=== PATIENT | male | born 1940 | race Caucasian/White ===

== ENCOUNTER 2016-05-21 00:34 | Emergency (ER) | payer OTHER ==
[~2016-05-21] VITALS: Ht 172.7 cm; Wt 72.8 kg
[~2016-05-21 00:34] MED LIST: CIPRO500 MG PO; CITRATE OF MAG296 ML PO; CLOPIDOGREL75 MG PO; CONSTULOSE10 GM/15 M PO; FOLIC ACID1 MG PO; IMDUR60 MG PO; LOPRESSOR25 MG PO; PERCOCET 5/31 TABLET PO; PRAVASTATIN SOD40 MG PO; RAMIPRIL5 MG PO
[2016-05-21 01:23] LABS: ADD MIUA? YES; BILIRUBIN NEGATIVE; BLOOD SMALL; COLOR YELLOW ((YELLOW)); GLUCOSE (STRIP) NEGATIVE; KETONES NEGATIVE; LEUKOCYTES LARGE; NITRITE NEGATIVE; PROTEIN (STRIP) NEGATIVE; SPECIFIC GRAVITY 1.015 (1.000-1.030); UROBILINOGEN 0.2 MG/DL (0.2-1.0)
[2016-05-21 01:48] LABS: HEMATOCRIT 43.6 % (38.0-50.0); MCH 30.1 PG (29.0-34.0); MCHC 33.7 G/DL (30.0-36.0); MEAN PLAT.VOLUME 9.3 uM^3 (9.0-12.4); PLATELET COUNT 202 K/uL (156-360); RBC DIS.WIDTH-CV 13.7 % (11.8-14.6); RED BLOOD COUNT 4.89 M/uL (4.00-5.50); WHITE BLOOD COUNT 5.9 K/uL (4.1-10.2)
[2016-05-21 01:49] LABS: BACTERIA 1+; CASTS NONE SEEN /LPF; CRYSTALS NONE SEEN; EPITHELIAL CELLS RARE; MUCUS NONE SEEN; RED BLOOD CELLS 0-5 /HPF (0-5); UCUL ADDED? YES; WHITE BLOOD CELLS TNTC /HPF (0-5)
[2016-05-21 01:50] LABS: MCV 89.2 FL (86-99)
[2016-05-21 02:00] LABS: CHLORIDE 104 mEq/L (99-109); POTASSIUM 4.2 mEq/L (3.7-5.4); SODIUM 138 mEq/L (136-147)
[2016-05-21 02:01] LABS: GLUCOSE 99 mg/dL (70-99)
[2016-05-21 02:03] LABS: ANION GAP 6 MEQ/L (2-14)
[2016-05-21 02:05] LABS: GFR ESTIMATE (CALCULATED) > 59 mL/min/
[2016-05-21 02:06] LABS: UREA NITROGEN (BUN) 10 mg/dL (9-23)
[2016-05-21] MEDS ORDERED: CIPRO500 MG PO (03:59)
[2016-05-21 04:30] VITALS: BP 157/79
== END 2016-05-21 04:34 | disposition home or self-care (01) ==
LOC: EME 00:34
PROVIDERS: Emergency Medicine
DX: N30.00 Acute cystitis without hematuria (principal); E78.5 Hyperlipidemia, unspecified; I10 Essential (primary) hypertension; Z95.1 Presence of aortocoronary bypass graft; Z87.891 Personal history of nicotine dependence
CPT/HCPCS: 74176; 80048; 81003; 85027; 87086; 99281; 99284

== ENCOUNTER 2016-06-04 09:33 | Emergency (ER) | payer OTHER ==
[~2016-06-04] VITALS: Ht 172.7 cm; Wt 68.0 kg
[2016-06-04] MEDS ORDERED: LO-DOSE ASPIRIN81 M2 PO (10:04)
[2016-06-04] MEDS ORDERED: MULTIPLE VITAM1 EACH PO (10:05)
[2016-06-04] MEDS ORDERED: NIASPAN,SLO-NI500 MG PO (10:06)
[2016-06-04] MEDS ORDERED: TRICOR145 MG PO (10:07)
[2016-06-04] MEDS ORDERED: VITAMIN C1000 MG PO (10:08)
[2016-06-04] MEDS ORDERED: VITAMIN D2000 UNI1 PO (10:08)
[2016-06-04 10:19] LABS: CHLORIDE 105 mEq/L (99-109); POTASSIUM 3.7 mEq/L (3.7-5.4); SODIUM 138 mEq/L (136-147)
[2016-06-04 10:21] LABS: GLUCOSE 112 mg/dL (70-99)
[2016-06-04 10:22] LABS: ANION GAP 7 MEQ/L (2-14)
[2016-06-04 10:24] LABS: EOSINOPHIL (%) 1.2 % (0-5); EOSINOPHIL COUNT 0.1 K/uL (0-0.3); HEMATOCRIT 41.4 % (38.0-50.0); IMMATURE GRANULOCYTE (%) 0.8 % (0.0-0.7); IMMATURE GRANULOCYTE COUNT 0.4 K/uL; MCH 29.9 PG (29.0-34.0); MCHC 34.1 G/DL (30.0-36.0); MCV 87.7 FL (86-99); MEAN PLAT.VOLUME 8.8 uM^3 (9.0-12.4); MONOCYTE (%) 6.2 % (3-12); MONOCYTE COUNT 0.3 K/uL (0-0.8); NEUTROPHIL (%) 71.3 % (45-76); NEUTROPHIL COUNT 3.5 K/uL (1.8-6.4); PLATELET COUNT 189 K/uL (156-360); RBC DIS.WIDTH-SD 44.3 % (39-53); RED BLOOD COUNT 4.72 M/uL (4.00-5.50)
[2016-06-04 10:25] LABS: ALKALINE PHOSPHATASE 111 IU/L (3-129); GFR ESTIMATE (CALCULATED) > 59 mL/min/
[2016-06-04 10:26] LABS: UREA NITROGEN (BUN) 10 mg/dL (9-23)
[2016-06-04 15:06] VITALS: BP 126/79
== END 2016-06-04 15:32 | disposition home or self-care (01) ==
LOC: EME 09:33
PROVIDERS: Emergency Medicine
DX: K52.9 Noninfective gastroenteritis and colitis, unspecified (principal); I10 Essential (primary) hypertension; E78.5 Hyperlipidemia, unspecified; Z87.891 Personal history of nicotine dependence
CPT/HCPCS: 74022; 74177; 80053; 85025; 93005; 99281; 99285

== ENCOUNTER 2016-06-08 10:11 | Emergency (ER) | payer OTHER ==
[~2016-06-08] VITALS: Ht 172.7 cm; Wt 70.3 kg
[~2016-06-08 10:11] MED LIST changes: +LO-DOSE ASPIRIN81 M2 PO; +MULTIPLE VITAM1 EACH PO; +NIASPAN,SLO-NI500 MG PO; +TRICOR145 MG PO; +VITAMIN C1000 MG PO; +VITAMIN D2000 UNI1 PO
[2016-06-08 11:44] LABS: HEMATOCRIT 42.6 % (38.0-50.0); MCH 30.2 PG (29.0-34.0); PLATELET COUNT 189 K/uL (156-360); RBC DIS.WIDTH-CV 13.8 % (11.8-14.6); RBC DIS.WIDTH-SD 42.5 % (39-53); RED BLOOD COUNT 4.94 M/uL (4.00-5.50); WHITE BLOOD COUNT 6.1 K/uL (4.1-10.2)
[2016-06-08 11:46] LABS: MCV 86.2 FL (86-99)
[2016-06-08 11:53] LABS: CHLORIDE 104 mEq/L (99-109); POTASSIUM 4.8 mEq/L (3.7-5.4); SODIUM 133 mEq/L (136-147)
[2016-06-08 11:57] LABS: ANION GAP 9 MEQ/L (2-14); GLUCOSE 139 mg/dL (70-99)
[2016-06-08 11:59] LABS: ALKALINE PHOSPHATASE 98 IU/L (3-129); GFR ESTIMATE (CALCULATED) > 59 mL/min/
[2016-06-08 12:00] LABS: UREA NITROGEN (BUN) 7 mg/dL (9-23)
[2016-06-08 12:03] LABS: TOTAL BILIRUBIN 0.5 mg/dL (0.0-1.0)
[2016-06-08 12:37] LABS: ADD MIUA? YES; BILIRUBIN NEGATIVE; BLOOD SMALL; COLOR YELLOW ((YELLOW)); GLUCOSE (STRIP) 100; KETONES NEGATIVE; LEUKOCYTES SMALL; NITRITE NEGATIVE; PROTEIN (STRIP) NEGATIVE; SPECIFIC GRAVITY 1.016 (1.000-1.030); UROBILINOGEN 0.2 MG/DL (0.2-1.0)
[2016-06-08 13:16] LABS: WHITE BLOOD CELLS RARE /HPF (0-5)
[2016-06-08 13:17] LABS: BACTERIA RARE /HPF; CASTS NONE SEEN /LPF; CRYSTALS NONE SEEN; EPITHELIAL CELLS NONE SEEN /HPF; MUCUS NONE SEEN /LPF; UCUL ADDED? NO
[2016-06-08] MEDS ORDERED: DULCOLAX5 MG PO (15:44)
[2016-06-08 15:53] VITALS: BP 145/88
[2016-06-09] MEDS ORDERED: KEFLEX500 MG PO (04:54)
== END 2016-06-08 16:51 | disposition home or self-care (01) ==
LOC: EME 10:11
DX: K59.00 Constipation, unspecified (principal); R33.9 Retention of urine, unspecified; N40.0 Benign prostatic hyperplasia without lower urinary tract symptoms; I10 Essential (primary) hypertension; E78.5 Hyperlipidemia, unspecified; Z95.1 Presence of aortocoronary bypass graft; Z79.82 Long term (current) use of aspirin; Z87.891 Personal history of nicotine dependence
CPT/HCPCS: 74176; 80053; 81003; 83605; 85027

== ENCOUNTER 2016-06-09 03:37 | Emergency (ER) | payer OTHER ==
[~2016-06-09] VITALS: Ht 172.7 cm; Wt 68.6 kg
[~2016-06-09 03:37] MED LIST changes: +DULCOLAX5 MG PO
[2016-06-09 04:12] LABS: HEMATOCRIT 43.2 % (38.0-50.0); MCH 29.5 PG (29.0-34.0); MCHC 34.3 G/DL (30.0-36.0); MCV 86.2 FL (86-99); PLATELET COUNT 205 K/uL (156-360); RBC DIS.WIDTH-CV 13.7 % (11.8-14.6); RBC DIS.WIDTH-SD 42.2 % (39-53); RED BLOOD COUNT 5.01 M/uL (4.00-5.50)
[2016-06-09 04:22] LABS: CHLORIDE 103 mEq/L (99-109); POTASSIUM 3.9 mEq/L (3.7-5.4); SODIUM 136 mEq/L (136-147)
[2016-06-09 04:23] LABS: ADD MIUA? YES; BILIRUBIN NEGATIVE; BLOOD LARGE; COLOR YELLOW ((YELLOW)); GLUCOSE (STRIP) NEGATIVE; KETONES NEGATIVE; LEUKOCYTES LARGE; NITRITE NEGATIVE; PROTEIN (STRIP) 30; SPECIFIC GRAVITY 1.012 (1.000-1.030); UROBILINOGEN 0.2 MG/DL (0.2-1.0)
[2016-06-09 04:23] LABS: GLUCOSE 107 mg/dL (70-99)
[2016-06-09 04:25] LABS: ANION GAP 7 MEQ/L (2-14)
[2016-06-09 04:27] LABS: GFR ESTIMATE (CALCULATED) > 59 mL/min/
[2016-06-09 04:28] LABS: UREA NITROGEN (BUN) 7 mg/dL (9-23)
[2016-06-09 04:49] LABS: WHITE BLOOD CELLS TNTC /HPF (0-5)
[2016-06-09 04:50] LABS: BACTERIA 2+ /HPF; CASTS NONE SEEN /LPF; CRYSTALS PRESENT; EPITHELIAL CELLS RARE /HPF; MUCUS RARE /LPF; OTHER SPERM CELLS; UCUL ADDED? YES
[2016-06-09 04:51] LABS: AMORPHOUS URATES CRYSTALS 3+; CALCIUM OXALATE CRYSTALS 1+ /HPF
[2016-06-09] MEDS ORDERED: KEFLEX500 MG PO (04:54)
[2016-06-09 05:09] VITALS: BP 119/88
[2016-06-10] MEDS ORDERED: ULTRAM50 MG PO (18:41)
== END 2016-06-09 05:12 | disposition home or self-care (01) ==
LOC: EME 03:37
PROVIDERS: Emergency Medicine
DX: R33.9 Retention of urine, unspecified (principal); N39.0 Urinary tract infection, site not specified; E78.5 Hyperlipidemia, unspecified; I10 Essential (primary) hypertension; Z95.1 Presence of aortocoronary bypass graft; Z87.891 Personal history of nicotine dependence
CPT/HCPCS: 80048; 81003; 85027; 87086; 99281; 99284

== ENCOUNTER 2016-06-10 16:15 | Emergency (ER) | payer OTHER ==
[~2016-06-10] VITALS: Ht 172.7 cm; Wt 69.1 kg
[~2016-06-10 16:15] MED LIST changes: +KEFLEX500 MG PO
[2016-06-10 17:33] LABS: HEMATOCRIT 41.1 % (38.0-50.0); MCHC 35.3 G/DL (30.0-36.0); MCV 85.1 FL (86-99); MEAN PLAT.VOLUME 8.9 uM^3 (9.0-12.4); PLATELET COUNT 206 K/uL (156-360); RBC DIS.WIDTH-CV 13.6 % (11.8-14.6); RBC DIS.WIDTH-SD 41.6 % (39-53); RED BLOOD COUNT 4.83 M/uL (4.00-5.50); WHITE BLOOD COUNT 6.2 K/uL (4.1-10.2)
[2016-06-10 17:36] LABS: ADD MIUA? YES; BILIRUBIN NEGATIVE; BLOOD SMALL; COLOR YELLOW ((YELLOW)); GLUCOSE (STRIP) NEGATIVE; KETONES NEGATIVE; LEUKOCYTES LARGE; NITRITE NEGATIVE; PROTEIN (STRIP) NEGATIVE; SPECIFIC GRAVITY 1.015 (1.000-1.030); UROBILINOGEN 0.2 MG/DL (0.2-1.0)
[2016-06-10 17:42] LABS: CHLORIDE 103 mEq/L (99-109); POTASSIUM 3.6 mEq/L (3.7-5.4); SODIUM 135 mEq/L (136-147)
[2016-06-10 17:44] LABS: GLUCOSE 101 mg/dL (70-99)
[2016-06-10 17:45] LABS: ANION GAP 5 MEQ/L (2-14)
[2016-06-10 17:46] LABS: TOTAL BILIRUBIN 0.6 mg/dL (0.0-1.0)
[2016-06-10 17:47] LABS: ALKALINE PHOSPHATASE 86 IU/L (3-129)
[2016-06-10 17:48] LABS: GFR ESTIMATE (CALCULATED) > 59 mL/min/
[2016-06-10 17:49] LABS: UREA NITROGEN (BUN) 9 mg/dL (9-23)
[2016-06-10 17:51] LABS: CREATINE KINASE 32 IU/L (1-294); LIPASE 11 U/L (1.0-51.0)
[2016-06-10 18:17] LABS: RED BLOOD CELLS RARE /HPF (0-5); WHITE BLOOD CELLS 0-5 /HPF (0-5)
[2016-06-10 18:18] LABS: BACTERIA NONE SEEN /HPF; CALCIUM OXALATE CRYSTALS 2+ /HPF; CASTS NONE SEEN /LPF; CRYSTALS PRESENT; EPITHELIAL CELLS RARE /HPF; MUCUS NONE SEEN /LPF; UCUL ADDED? NO
[2016-06-10] MEDS ORDERED: ULTRAM50 MG PO (18:41)
[2016-06-10 18:59] VITALS: BP 123/72
== END 2016-06-10 19:10 | disposition home or self-care (01) ==
LOC: EME 16:15
PROVIDERS: Emergency Medicine
DX: K52.9 Noninfective gastroenteritis and colitis, unspecified (principal); I10 Essential (primary) hypertension; E78.5 Hyperlipidemia, unspecified; Z79.82 Long term (current) use of aspirin; Z95.1 Presence of aortocoronary bypass graft; Z87.891 Personal history of nicotine dependence
CPT/HCPCS: 80053; 81003; 82550; 83690; 85027; 99281; 99284

== ENCOUNTER 2016-06-12 07:35 | Inpatient (IN) | payer OTHER ==
[2016-06-12] VITALS (15 sets, daily range): BP systolic 101–151; BP diastolic 62–102
[~2016-06-12] VITALS: Ht 172.7 cm; Wt 62.8 kg
[~2016-06-12 07:35] MED LIST changes: +ULTRAM50 MG PO
[2016-06-12 08:13] LABS: AMYLASE 26 IU/L (1-118); CHLORIDE 102 mEq/L (99-109); POTASSIUM 3.9 mEq/L (3.7-5.4); SODIUM 138 mEq/L (136-147)
[2016-06-12 08:17] LABS: ANION GAP 7 MEQ/L (2-14)
[2016-06-12 08:18] LABS: SERUM ETHYL ALCOHOL < 10 mg/dL
[2016-06-12 08:19] LABS: GFR ESTIMATE (CALCULATED) > 59 mL/min/
[2016-06-12 08:20] LABS: UREA NITROGEN (BUN) 10 mg/dL (9-23)
[2016-06-12 08:22] LABS: GLUCOSE 169 mg/dL (70-99); LIPASE 23 U/L (1.0-51.0)
[2016-06-12 08:36] LABS: EOSINOPHIL (%) 0.2 % (0-5); HEMATOCRIT 44.7 % (38.0-50.0); IMMATURE GRANULOCYTE (%) 0.4 % (0.0-0.7); IMMATURE GRANULOCYTE COUNT 0.1 K/uL; LYMPHOCYTE COUNT 0.8 K/uL (1.0-2.8); MCH 30.5 PG (29.0-34.0); MCHC 34.5 G/DL (30.0-36.0); MCV 88.5 FL (86-99); MEAN PLAT.VOLUME 9.6 uM^3 (9.0-12.4); MONOCYTE (%) 5.1 % (3-12); MONOCYTE COUNT 0.6 K/uL (0-0.8); NEUTROPHIL (%) 87.3 % (45-76); NEUTROPHIL COUNT 9.9 K/uL (1.8-6.4); PLATELET COUNT 188 K/uL (156-360); RBC DIS.WIDTH-CV 14.1 % (11.8-14.6); RBC DIS.WIDTH-SD 45.1 % (39-53); RED BLOOD COUNT 5.05 M/uL (4.00-5.50); WHITE BLOOD COUNT 11.4 K/uL (4.1-10.2)
[2016-06-12 09:53] LABS: INTER. NORMALIZED RATIO 1.1; PROTHROMBIN TIME 11.1 (9.2-11.2); PTT 26.9 (25-32)
[2016-06-12] MEDS ORDERED: LIPITOR20 MG PO (10:16)
[2016-06-12] MEDS ORDERED: OMEPRAZOLE20 MG PO (10:16)
[2016-06-12] MEDS ORDERED: SERTRALINE HCL50 MG PO (10:17)
[2016-06-12] MEDS ORDERED: LINZESS145 MCG PO (10:17)
[2016-06-12] MEDS ORDERED: LANSOPRAZOLE30 MG PO (10:18)
[2016-06-12] MEDS ORDERED: ENULOSE10 GM/15 M PO (10:18)
[2016-06-12] MEDS ORDERED: KEFLEX500 MG PO (10:19)
[2016-06-12 13:40] LABS: Estimated Average Glucose 114 mg/dL (70-123); HEMOGLOBIN A1c (GLYCOHEMOGLOB) 5.6 % HGB (Below 5.7)
[2016-06-12 13:41] LABS: METH RESISTANT S AUREUS PCR NEGATIVE (NEGATIVE)
[2016-06-12 13:42] LABS: SPECIMEN PROCESSING CONTROL PASS
[2016-06-12 13:43] LABS: PROBE CHECK PASS
[2016-06-13] VITALS (15 sets, daily range): BP systolic 98–142; BP diastolic 58–80
[2016-06-13 06:21] LABS: ALKALINE PHOSPHATASE 55 IU/L (3-129); ANION GAP 2 MEQ/L (2-14); CHLORIDE 103 MEQ/L (99-109); GFR ESTIMATE (CALCULATED) > 59 mL/min/; GLUCOSE 177 mg/dL (70-99); POTASSIUM 4.3 MEQ/L (3.7-5.4); SAMPLE HEMOLYSIS CHECK 0; SAMPLE ICTERIC CHECK 0; SAMPLE LIPEMIA CHECK 0; SODIUM 138 MEQ/L (136-147); TOTAL BILIRUBIN 0.7 MG/DL (0.0-1.0); UREA NITROGEN (BUN) 13 mg/dL (9-23)
[2016-06-13 06:34] LABS: HEMATOCRIT 38.6 % (38.0-50.0); MCH 29.9 PG (29.0-34.0); MCHC 33.2 G/DL (30.0-36.0); MCV 90.2 FL (86-99); MEAN PLAT.VOLUME 9.5 uM^3 (9.0-12.4); PLATELET COUNT 172 K/uL (156-360); RBC DIS.WIDTH-CV 14.5 % (11.8-14.6); RBC DIS.WIDTH-SD 47.4 % (39-53); RED BLOOD COUNT 4.28 M/uL (4.00-5.50)
[2016-06-13 06:36] LABS: WHITE BLOOD COUNT 6.5 K/uL (4.1-10.2)
[2016-06-13 13:17] LABS: ADD MIUA? YES; BILIRUBIN NEGATIVE; BLOOD MODERATE; COLOR YELLOW ((YELLOW)); GLUCOSE (STRIP) 50; KETONES NEGATIVE; LEUKOCYTES MODERATE; NITRITE NEGATIVE; PROTEIN (STRIP) 30; SPECIFIC GRAVITY 1.021 (1.000-1.030); UROBILINOGEN 0.2 MG/DL (0.2-1.0)
[2016-06-13 13:25] LABS: BACTERIA NONE SEEN /HPF; EPITHELIAL CELLS RARE /HPF; MUCUS 2+ /LPF; RED BLOOD CELLS TNTC /HPF (0-5); UCUL ADDED? YES; WHITE BLOOD CELLS TNTC /HPF (0-5)
[2016-06-13 16:44] LABS: AMPHETAMINES QUANT VALUE 0 NG/ML; BARBITUATES QUANT VALUE 0 NG/ML; BENZODIAZEPINES QUANT VALUE 0 NG/ML; BENZODIAZEPINES, URINE SCREEN Negative (200 ng/mL); MARIJUANA QUANT VALUE 0 NG/ML; OPIATES QUANTITATIVE VALUE 0 NG/ML; PHENCYCLIDINE QUANT VALUE 0 NG/ML
[2016-06-14] VITALS (7 sets, daily range): BP systolic 88–151; BP diastolic 52–80
[2016-06-14 18:04] LABS: ADD MIUA? YES; BILIRUBIN NEGATIVE; BLOOD LARGE; COLOR AMBER ((YELLOW)); GLUCOSE (STRIP) NEGATIVE; KETONES NEGATIVE; LEUKOCYTES SMALL; NITRITE NEGATIVE; PROTEIN (STRIP) 100; UROBILINOGEN 0.2 MG/DL (0.2-1.0)
[2016-06-14 19:03] LABS: BACTERIA NONE SEEN /HPF; EPITHELIAL CELLS RARE /HPF; MUCUS 4+ /LPF; RED BLOOD CELLS TNTC /HPF (0-5); UCUL ADDED? NO; UNCLASSIFIED CRYSTALS 4+ /HPF; WHITE BLOOD CELLS 30-40 /HPF (0-5); WHITE BLOOD CELLS CLUMP FEW /HPF (0-5)
[2016-06-14 23:49] LABS: ADD MIUA? YES; BILIRUBIN NEGATIVE; BLOOD LARGE; COLOR YELLOW ((YELLOW)); GLUCOSE (STRIP) NEGATIVE; KETONES NEGATIVE; LEUKOCYTES SMALL; NITRITE NEGATIVE; PROTEIN (STRIP) 100; SPECIFIC GRAVITY 1.016 (1.000-1.030); UROBILINOGEN 0.2 MG/DL (0.2-1.0)
[2016-06-15 00:22] LABS: BACTERIA 2+ /HPF; EPITHELIAL CELLS NONE SEEN /HPF; HYALINE CASTS 0-5 /LPF; MUCUS 4+ /LPF; RED BLOOD CELLS TNTC /HPF (0-5); UNCLASSIFIED CRYSTALS 1+ /HPF; WHITE BLOOD CELLS 20-30 /HPF (0-5)
[2016-06-15 04:04] VITALS: BP 152/70
[2016-06-15 07:19] VITALS: BP 164/88
[2016-06-15 09:07] LABS: EOSINOPHIL COUNT 0.1 K/uL (0-0.3); HEMATOCRIT 37.3 % (38.0-50.0); MCH 30.3 PG (29.0-34.0); MCHC 33.2 G/DL (30.0-36.0); MCV 91.2 FL (86-99); MEAN PLAT.VOLUME 9.5 uM^3 (9.0-12.4); MONOCYTE COUNT 0.3 K/uL (0-0.8); NEUTROPHIL (%) 68.1 % (45-76); NEUTROPHIL COUNT 3.1 K/uL (1.8-6.4); PLATELET COUNT 145 K/uL (156-360); RBC DIS.WIDTH-CV 14.2 % (11.8-14.6); RBC DIS.WIDTH-SD 47.7 % (39-53); RED BLOOD COUNT 4.09 M/uL (4.00-5.50); WHITE BLOOD COUNT 4.6 K/uL (4.1-10.2)
[2016-06-15 09:32] LABS: ANION GAP 5 MEQ/L (2-14); CHLORIDE 104 MEQ/L (99-109); GFR ESTIMATE (CALCULATED) > 59 mL/min/; GLUCOSE 154 mg/dL (70-99); SAMPLE HEMOLYSIS CHECK 0; SAMPLE ICTERIC CHECK 0; SAMPLE LIPEMIA CHECK 0; SODIUM 142 MEQ/L (136-147); UREA NITROGEN (BUN) 13 mg/dL (9-23)
[2016-06-15 11:42] VITALS: BP 129/71
[2016-06-15 16:12] VITALS: BP 131/68
[2016-06-16] VITALS: BP 161/89
[2016-06-16 08:29] VITALS: BP 150/80
[2016-06-16 15:28] VITALS: BP 141/78
[2016-06-16 23:46] VITALS: BP 142/69
[2016-06-17 08:06] VITALS: BP 126/79
[2016-06-17 15:50] VITALS: BP 130/70
[2016-06-18 00:31] VITALS: BP 176/82
[2016-06-18 08:23] VITALS: BP 182/88
[2016-06-18 11:37] VITALS: BP 134/72
[2016-06-18 15:34] VITALS: BP 136/76
[2016-06-18 23:20] VITALS: BP 156/81
[2016-06-19 08:49] VITALS: BP 156/84
[2016-06-19 20:48] VITALS: BP 152/78
[2016-06-20 00:32] VITALS: BP 148/76
[2016-06-20 04:00] VITALS: BP 142/80
[2016-06-20 07:20] VITALS: BP 170/82
[2016-06-20 13:00] VITALS: BP 147/64
[2016-06-20 16:47] VITALS: BP 137/82
[2016-06-20 23:37] VITALS: BP 147/75
[2016-06-21 01:00] VITALS: BP 147/64
[2016-06-21 07:40] VITALS: BP 169/93
[2016-06-21 10:52] VITALS: BP 142/80
[2016-06-21 10:54] VITALS: BP 142/80
[2016-06-21 16:29] VITALS: BP 151/83
[2016-06-21 23:28] VITALS: BP 136/83
[2016-06-22 04:21] VITALS: BP 180/85
[2016-06-22 06:27] LABS: HEMATOCRIT 35.5 % (38.0-50.0); MCV 89.9 FL (86-99)
[2016-06-22 06:49] LABS: ANION GAP 7 MEQ/L (2-14); CHLORIDE 107 MEQ/L (99-109); GFR ESTIMATE (CALCULATED) > 59 mL/min/; GLUCOSE 131 mg/dL (70-99); POTASSIUM 3.5 MEQ/L (3.7-5.4); SAMPLE HEMOLYSIS CHECK 0; SAMPLE ICTERIC CHECK 0; SAMPLE LIPEMIA CHECK 0; SODIUM 140 MEQ/L (136-147); UREA NITROGEN (BUN) 14 mg/dL (9-23)
[2016-06-22 08:07] VITALS: BP 160/90
[2016-06-22 10:11] LABS: MCH 28.8 PG (29.0-34.0); MEAN PLAT.VOLUME 9.9 uM^3 (9.0-12.4); PLATELET COUNT 173 K/uL (156-360); RBC DIS.WIDTH-CV 14.5 % (11.8-14.6); RBC DIS.WIDTH-SD 47.8 % (39-53); RED BLOOD COUNT 4.03 M/uL (4.00-5.50)
[2016-06-22 10:54] VITALS: BP 170/80
[2016-06-22 15:00] VITALS: BP 148/86
[2016-06-22 15:27] VITALS: BP 158/74
[2016-06-22 19:30] VITALS: BP 144/96
[2016-06-23 00:20] VITALS: BP 166/80
[2016-06-23 04:05] VITALS: BP 163/76
[2016-06-23 05:40] LABS: HEMATOCRIT 35.2 % (38.0-50.0); MCV 90.7 FL (86-99)
[2016-06-23 08:03] VITALS: BP 167/84
[2016-06-23 11:30] VITALS: BP 175/78
[2016-06-23 16:30] VITALS: BP 184/82
[2016-06-23 19:27] VITALS: BP 161/78
[2016-06-24] VITALS (7 sets, daily range): BP systolic 107–194; BP diastolic 59–90
[2016-06-25 00:30] VITALS: BP 146/83
[2016-06-25 07:00] VITALS: BP 150/70
[2016-06-25 15:14] LABS: ANION GAP 9 MEQ/L (2-14); CHLORIDE 117 MEQ/L (99-109); POTASSIUM 3.6 MEQ/L (3.7-5.4); SAMPLE HEMOLYSIS CHECK 0; SAMPLE ICTERIC CHECK 0; SAMPLE LIPEMIA CHECK 0; SODIUM 153 MEQ/L (136-147)
[2016-06-25 15:20] LABS: GFR ESTIMATE (CALCULATED) > 59 mL/min/; GLUCOSE 170 mg/dL (70-99)
[2016-06-25 15:21] LABS: UREA NITROGEN (BUN) 24 mg/dL (9-23)
[2016-06-25 16:05] VITALS: BP 117/90
[2016-06-25 16:09] LABS: HEMATOCRIT 35.2 % (38.0-50.0); MCH 28.5 PG (29.0-34.0); MCV 92.1 FL (86-99); MEAN PLAT.VOLUME 9.4 uM^3 (9.0-12.4); PLATELET COUNT 218 K/uL (156-360); RBC DIS.WIDTH-SD 50.8 % (39-53); RED BLOOD COUNT 3.82 M/uL (4.00-5.50); WHITE BLOOD COUNT 6.7 K/uL (4.1-10.2)
[2016-06-25 16:36] LABS: ANION GAP 7 MEQ/L (2-14); CHLORIDE 117 MEQ/L (99-109); GFR ESTIMATE (CALCULATED) > 59 mL/min/; GLUCOSE 135 mg/dL (70-99); POTASSIUM 3.5 MEQ/L (3.7-5.4); SAMPLE HEMOLYSIS CHECK 0; SAMPLE ICTERIC CHECK 0; SAMPLE LIPEMIA CHECK 0; SODIUM 153 MEQ/L (136-147); UREA NITROGEN (BUN) 24 mg/dL (9-23)
[2016-06-25 18:50] VITALS: BP 155/72
[2016-06-25 19:26] VITALS: BP 146/73
[2016-06-25 23:32] VITALS: BP 154/71
[2016-06-26 03:24] VITALS: BP 162/82
[2016-06-26 06:52] LABS: ANION GAP 5 MEQ/L (2-14); CHLORIDE 118 MEQ/L (99-109); GFR ESTIMATE (CALCULATED) > 59 mL/min/; GLUCOSE 121 mg/dL (70-99); POTASSIUM 3.7 MEQ/L (3.7-5.4); SAMPLE HEMOLYSIS CHECK 0; SAMPLE ICTERIC CHECK 0; SAMPLE LIPEMIA CHECK 0; SODIUM 152 MEQ/L (136-147); UREA NITROGEN (BUN) 24 mg/dL (9-23)
[2016-06-26 07:40] VITALS: BP 164/74
[2016-06-26 11:29] VITALS: BP 119/59
[2016-06-26 16:25] VITALS: BP 128/67
[2016-06-26 23:40] VITALS: BP 140/75
[2016-06-27 06:01] LABS: HEMATOCRIT 29.2 % (38.0-50.0); MCH 28.4 PG (29.0-34.0); MCHC 31.2 G/DL (30.0-36.0); MCV 91.3 FL (86-99); MEAN PLAT.VOLUME 9.8 uM^3 (9.0-12.4); PLATELET COUNT 195 K/uL (156-360); RBC DIS.WIDTH-CV 14.6 % (11.8-14.6); RBC DIS.WIDTH-SD 49.2 % (39-53); WHITE BLOOD COUNT 5.1 K/uL (4.1-10.2)
[2016-06-27 06:19] LABS: ANION GAP 5 MEQ/L (2-14); CHLORIDE 110 MEQ/L (99-109); GFR ESTIMATE (CALCULATED) > 59 mL/min/; GLUCOSE 114 mg/dL (70-99); POTASSIUM 3.5 MEQ/L (3.7-5.4); SAMPLE HEMOLYSIS CHECK 0; SAMPLE ICTERIC CHECK 0; SAMPLE LIPEMIA CHECK 0; UREA NITROGEN (BUN) 18 mg/dL (9-23)
[2016-06-27 06:24] LABS: SODIUM 144 MEQ/L (136-147)
[2016-06-27 08:30] VITALS: BP 138/80
[2016-06-27 16:30] VITALS: BP 121/64
[2016-06-27 23:34] VITALS: BP 103/58
[2016-06-28 07:38] VITALS: BP 153/80
[2016-06-28 15:25] VITALS: BP 143/84
[2016-06-29] VITALS: BP 129/63
[2016-06-29 08:22] VITALS: BP 180/93
[2016-06-29 16:30] VITALS: BP 151/80
[2016-06-30 00:36] VITALS: BP 154/80
[2016-06-30 07:35] VITALS: BP 138/71
[2016-06-30 08:51] LABS: HEMATOCRIT 35.2 % (38.0-50.0); MCH 28.5 PG (29.0-34.0); MCHC 32.1 G/DL (30.0-36.0); MCV 88.9 FL (86-99); MEAN PLAT.VOLUME 9.7 uM^3 (9.0-12.4); PLATELET COUNT 231 K/uL (156-360); RBC DIS.WIDTH-CV 14.5 % (11.8-14.6); RBC DIS.WIDTH-SD 46.2 % (39-53); RED BLOOD COUNT 3.96 M/uL (4.00-5.50); WHITE BLOOD COUNT 4.7 K/uL (4.1-10.2)
[2016-06-30 09:13] LABS: ANION GAP 3 MEQ/L (2-14); CHLORIDE 108 MEQ/L (99-109); GFR ESTIMATE (CALCULATED) > 59 mL/min/; GLUCOSE 117 mg/dL (70-99); POTASSIUM 4.2 MEQ/L (3.7-5.4); SAMPLE HEMOLYSIS CHECK 0; SAMPLE ICTERIC CHECK 0; SAMPLE LIPEMIA CHECK 0; SODIUM 141 MEQ/L (136-147); UREA NITROGEN (BUN) 11 mg/dL (9-23)
[2016-06-30 15:52] VITALS: BP 108/65
[2016-07-01 00:01] VITALS: BP 139/69
[2016-07-01 07:36] VITALS: BP 169/85
[2016-07-01 16:20] VITALS: BP 111/60
[2016-07-01 23:51] VITALS: BP 167/77
[2016-07-02 05:58] LABS: ANION GAP 6 MEQ/L (2-14); CHLORIDE 107 MEQ/L (99-109); GFR ESTIMATE (CALCULATED) > 59 mL/min/; GLUCOSE 112 mg/dL (70-99); POTASSIUM 4.1 MEQ/L (3.7-5.4); SAMPLE HEMOLYSIS CHECK 0; SAMPLE ICTERIC CHECK 0; SAMPLE LIPEMIA CHECK 0; SODIUM 140 MEQ/L (136-147); UREA NITROGEN (BUN) 12 mg/dL (9-23)
[2016-07-02 07:35] VITALS: BP 153/73
[2016-07-02 16:00] VITALS: BP 112/62
[2016-07-02 23:51] VITALS: BP 148/82
[2016-07-03 08:16] VITALS: BP 168/77
[2016-07-03 12:15] VITALS: BP 115/62
[2016-07-03 15:55] VITALS: BP 118/65
[2016-07-03 23:55] VITALS: BP 117/71
[2016-07-04 03:52] VITALS: BP 150/85
[2016-07-04] MEDS ORDERED: ENDOCET 5-3251 EACH PO (11:38)
[2016-07-04 11:57] VITALS: BP 106/65
== END 2016-07-04 15:35 | DRG 956 ==
LOC: TRA 07:35 → EDOF 09:38 → 4WEST 09:38 → 3EAST 09:38 → 4WEST 11:31 → 3EAST 06-13 19:28
PROVIDERS: Emergency Medicine; Hospitalist; Internal Medicine; Internal Medicine Pulmonary Disease; Nurse Practitioner Adult Health; Orthopaedic Surgery Sports Medicine; Physician Assistant Surgical; Surgery
DX: S13.161A Dislocation of C5/C6 cervical vertebrae, initial encounter (principal); S06.5X9A Traumatic subdural hemorrhage with loss of consciousness of unspecified duration, initial encounter; S22.089A Unspecified fracture of T11-T12 vertebra, initial encounter for closed fracture; S01.81XA Laceration without foreign body of other part of head, initial encounter; S51.812A Laceration without foreign body of left forearm, initial encounter; S13.4XXA Sprain of ligaments of cervical spine, initial encounter; M48.32 Traumatic spondylopathy, cervical region; V47.0XXA Car driver injured in collision with fixed or stationary object in nontraffic accident, initial encounter; I63.9 Cerebral infarction, unspecified; N39.0 Urinary tract infection, site not specified; G93.41 Metabolic encephalopathy; S72.001A Fracture of unspecified part of neck of right femur, initial encounter for closed fracture; W19.XXXA Unspecified fall, initial encounter; Y93.01 Activity, walking, marching and hiking; Y92.239 Unspecified place in hospital as the place of occurrence of the external cause; N02.9 Recurrent and persistent hematuria with unspecified morphologic changes; E87.0 Hyperosmolality and hypernatremia; E87.6 Hypokalemia; R13.10 Dysphagia, unspecified; F03.90 Unspecified dementia, unspecified severity, without behavioral disturbance, psychotic disturbance, mood disturbance, and anxiety; I25.10 Atherosclerotic heart disease of native coronary artery without angina pectoris; K21.9 Gastro-esophageal reflux disease without esophagitis; I10 Essential (primary) hypertension; E78.5 Hyperlipidemia, unspecified; R33.9 Retention of urine, unspecified; I65.23 Occlusion and stenosis of bilateral carotid arteries; Z95.1 Presence of aortocoronary bypass graft; Z95.5 Presence of coronary angioplasty implant and graft; Z87.891 Personal history of nicotine dependence; Z79.82 Long term (current) use of aspirin; Z79.02 Long term (current) use of antithrombotics/antiplatelets; Z86.73 Personal history of transient ischemic attack (TIA), and cerebral infarction without residual deficits; Z91.19 Patient's noncompliance with other medical treatment and regimen
CPT/HCPCS: 70450; 70486; 71010; 71260; 72040; 72125; 72129; 72131; 72132; 72141; 72170; 73502; 73552; 73590; 73630; 73700; 73721; 74177; 74230; 76000; 80048; 80048 91; 80053; 80306 90; 81003; 82150; 82948; 83036; 83690; 85014; 85018; 85025; 85027; 85610; 85730; 86850; 86900; 86901; 87086; 87641; 92526 GN; 92610 GN; 92611 GN; 93005; 93880; 94667; 94668; 94760; 94799; 96125 GN; 97530 GO; 97530 GP; 97532 GN; 99202; 99281; 99285; C1713; G0480; J0330; J0360; J0456; J0690; J0696; J1170; J1630; J2270; J2405; J2543; J3010; J3480; J7030; J7050